=== PATIENT | female | born 1975 | race Hispanic/Latino ===

== ENCOUNTER 2019-01-22 07:05 | Emergency (ER) | payer OTHER | END 2019-01-22 08:53 | disposition home or self-care (01) | LOC: EDH 07:05 | DX: S61.211A Laceration without foreign body of left index finger without damage to nail, initial encounter (principal); I48.91 Unspecified atrial fibrillation; F41.9 Anxiety disorder, unspecified; Z88.5 Allergy status to narcotic agent; Z88.8 Allergy status to other drugs, medicaments and biological substances; Z98.890 Other specified postprocedural states; W45.8XXA Other foreign body or object entering through skin, initial encounter; Y93.89 Activity, other specified; Y92.098 Other place in other non-institutional residence as the place of occurrence of the external cause; Y99.8 Other external cause status ==